=== PATIENT | female | born 1975 | race Caucasian/White ===

== ENCOUNTER 2023-01-28 14:44 | Outpatient (CLI) | payer MEDICAID ==
[2023-01-28 17:50] LABS: BASOPHILS # (AUTO) 0.1 10^3/uL (0.0-0.1); BASOPHILS % (AUTO) 0.7 %; EOSINOPHILS # (AUTO) 0.1 10^3/uL (0.0-0.7); HCT - HEMATOCRIT 45.7 % (37.0-47.0); HGB - HEMOGLOBIN 14.4 g/dL (12.0-16.0); LYMPHOCYTES % (AUTO) 24.2 %; MEAN CORPUSCULAR HEMOGLOBIN 27.2 pg (27.0-31.0); MEAN CORPUSCULAR HGB CONC 31.5 g/dL (32.0-36.0); MEAN CORPUSCULAR VOLUME 86.2 fL (81.0-99.0); MEAN PLATELET VOLUME 10.7 fL (7.9-10.8); MONOCYTES # (AUTO) 0.4 10^3/uL (0.0-1.0); MONOCYTES % (AUTO) 5.3 %; NEUTROPHILS # (AUTO) 5.7 10^3/uL (1.5-6.6); NEUTROPHILS % (AUTO) 68.4 %; PLT - PLATELET COUNT 302 10^3/uL (130-450); RED CELL DISTRIBUTION WIDTH 13.8 % (12.0-15.0); WHITE BLOOD COUNT 8.3 x10^3/uL (4.8-10.8)
[2023-01-28 18:16] LABS: THYROID STIMULATING HORMONE 1.51 uIU/mL (0.34-5.60)
[2023-01-28 18:18] LABS: FREE T4 (FREE THYROXINE) 0.91 ng/dL (0.58-1.64)
[2023-01-28 18:19] LABS: FERRITIN 11.4 ng/mL (11.0-306.8)
== END 2023-01-28 14:45 | disposition home or self-care (01) ==
LOC: LAB.N 14:44
PROVIDERS: ATTEND Nurse Practitioner
DX: L65.9 Nonscarring hair loss, unspecified (principal)
CPT/HCPCS: 36415; 82728; 84439; 84443; 85025

== ENCOUNTER 2023-02-11 15:42 | Outpatient (CLI) | payer MEDICAID ==
--- NOTE | 2023-02-12 11:09 | Mammography Report ---
BILATERAL DIGITAL SCREENING MAMMOGRAM 3D/2D: 02/11/2023 CLINICAL: Family history of breast cancer. Baseline exam. Routine screening. No prior exams were available for comparison. Both breasts are heterogeneously dense, which may obscure small masses (category c / 51-75% glandular tissue). There is a new 1.5 cm irregular mass with a microlobulated margin in the left breast central to the n ipple posterior depth 10 cm from the nipple. No other significant masses, calcifications, or other findings are seen in either breast. IMPRESSION: INCOMPLETE: NEEDS ADDITIONAL IMAGING EVALUATION The new 1.5 cm irregular mass in the left breast has a differential diagnosis of carcinoma and is ind eterminate. Additional views with possible ultrasound are recommended. Based on Tyrer-Cuzick model (a risk assessment model), the patient's lifetime risk is 25.6% and her 1 0 year risk is 6.0%. If a patient has an elevated risk, a more comprehensive evaluation should be con sidered and/or a referral to a genetic counselor. The [place] [employer], [employer], and NCCN Guidelines advise the consideration of Breast MRI as an adjunct to screening mammog alex in patients whose "Lifetime risk to develop breast cancer" is 20% or higher. This exam was interpreted at Station ID: [id number]. NOTE: For mammograms, a report in lay terms will be sent to the patient. Approximately 15% of breast malignancies will not be visualized mammographically. In the management of a palpable breast mass, a negative mammogram must not discourage biopsy of a clinically suspicious lesion. Electronically Signed By: Pedro Gotti M.D. acr/:02/12/2023 10:13:28 ACR BI-RADS Category 0: Incomplete 3340F PARENCHYMAL PATTERN: (D) - The breast(s) demonstrate(s) heterogeneously dense fibroglandular parenchy ma. BI-RADS CATEGORY: (0) - 0 Mammo and [place] [id number] Immediate follow-up LATERALITY: (L)
== END 2023-02-11 15:43 | disposition home or self-care (01) ==
LOC: DI.N 15:42
PROVIDERS: ATTEND Nurse Practitioner
DX: Z12.31 Encounter for screening mammogram for malignant neoplasm of breast (principal); N63.42 Unspecified lump in left breast, subareolar; Z80.3 Family history of malignant neoplasm of breast

== ENCOUNTER 2023-03-12 10:10 | Outpatient (CLI) | payer MEDICAID ==
--- NOTE | 2023-03-15 11:47 | Ultrasound Report ---
LIMITED ULTRASOUND OF LEFT BREAST AND AXILLA: 03/12/2023 CLINICAL: Patient returns for additional imaging over a suspected mass in the left breast. Comparison is made to exams dated: 03/12/2023 mammogram and 02/11/2023 mammogram - [facility]. Color flow ultrasound of the left breast 4 o'clock, and axilla regions was performed. Oliver scale abraham ges of the real-time examination were reviewed. There is a 1.6 cm x 1.6 cm x 1.1 cm irregular mass with a spiculated margin in the left breast at 4 o 'clock posterior depth 0.8 cm from the nipple. This irregular mass is hypoechoic. This correlates w ith mammography findings. Color flow imaging demonstrates that there is no vascularity present. No significant abnormalities were seen sonographically in the left axilla. IMPRESSION: HIGHLY SUGGESTIVE OF MALIGNANCY The 1.6 cm x 1.6 cm x 1.1 cm irregular mass in the left breast is highly suggestive of malignancy. -An ultrasound guided biopsy is recommended. No enlarged left axillary lymph nodes. Exam findings were discussed with the patient by Dr. Kimball. This exam was interpreted at Station ID: [id number]. Electronically Signed By: Vick Matos M.D. slc/:03/12/2023 12:16:16 Ultrasound BI-RADS: 5 Highly suggestive of malignancy BI-RADS CATEGORY: (5) - 5 Biopsy [id number] Immediate follow-up LATERALITY: (L)
--- NOTE | 2023-03-15 11:47 | Mammography Report ---
UNILATERAL LEFT DIGITAL DIAGNOSTIC MAMMOGRAM 3D/2D WITH SPOT COMPRESSION: 03/12/2023 CLINICAL: Patient returns for additional imaging over a suspected mass in the left breast. Comparison is made to exam dated: 02/11/2023 mammogram - [facility]. The left breast is heterogeneously dense, which may obscure small masses (category c / 51-75% glandul ar tissue). There is a new 1.8 cm irregular mass in the left breast central to the nipple posterior depth 10 cm f rom the nipple. This is seen in additional views. No other significant masses or calcifications are seen in the breast. IMPRESSION: INCOMPLETE: NEEDS ADDITIONAL IMAGING EVALUATION The new 1.8 cm irregular mass in the left breast is indeterminate. A targeted ultrasound is recommended and will immediately follow. Based on Tyrer-Cuzick model (a risk assessment model), the patient's lifetime risk is 27.5% and her 1 0 year risk is 6.5%. If a patient has an elevated risk, a more comprehensive evaluation should be con sidered and/or a referral to a genetic counselor. The [employer], [employer], and NCCN Guidelines advise the consideration of Breast MRI as an adjunct to screening mammog alex in patients whose "Lifetime risk to develop breast cancer" is 20% or higher. This exam was interpreted at Station ID: [id number]. NOTE: For mammograms, a report in lay terms will be sent to the patient. Approximately 15% of breast malignancies will not be visualized mammographically. In the management of a palpable breast mass, a negative mammogram must not discourage biopsy of a clinically suspicious lesion. Electronically Signed By: Vick Matos M.D. slc/:03/12/2023 10:47:02 ACR BI-RADS Category 0: Incomplete 3340F PARENCHYMAL PATTERN: (D) - The breast(s) demonstrate(s) heterogeneously dense fibroglandular pararianay noman. BI-RADS CATEGORY: (0) - 0 Ultrasound [id number] Immediate follow-up LATERALITY: (B)
== END 2023-03-12 10:11 | disposition home or self-care (01) ==
LOC: DI 10:10
PROVIDERS: ATTEND Nurse Practitioner
DX: N63.42 Unspecified lump in left breast, subareolar (principal)

== ENCOUNTER 2023-03-24 09:45 | Outpatient (CLI) | payer MEDICAID ==
[~2023-03-24 09:45] MED LIST: LIDOCAINE 1%-EPI 1:100000 20 ML MDV ONE; LIDOCAINE-MPF 1% 5 ML VIAL ONE
[2023-03-24] MEDS ORDERED: LIDOCAINE-MPF 1% 5 ML VIAL TD ONE (11:42)
[2023-03-24] MEDS ORDERED: LIDOCAINE 1%-EPI 1:100000 20 ML MDV SUBQ ONE (11:42)
--- NOTE | 2023-03-25 12:18 | Mammography Report ---
UNILATERAL LEFT DIGITAL DIAGNOSTIC MAMMOGRAM POST-PROCEDURE IMAGING FOR MARKER PLACEMENT: 03/24/2023 CLINICAL: Post left breast ultrasound biopsy clip placement imaging. No prior exams were available for comparison. The left breast is heterogeneously dense, which may obscure small masses (category c / 51-75% glandul ar tissue). There is a mass in the left breast middle depth seen on the mediolateral oblique view only. There also is a marker clip in the appropriate position in the left breast middle depth on seen on th e craniocaudal view only. This marker clip placement is at the biopsy site. No other significant masses or calcifications are seen in the breast. IMPRESSION: INCOMPLETE: NEEDS ADDITIONAL IMAGING EVALUATION There was a successful marker clip placement in the left breast middle depth seen on the craniocauda l view only. This exam was interpreted at Station ID: Unknown. NOTE: For mammograms, a report in lay terms will be sent to the patient. Approximately 15% of breast malignancies will not be visualized mammographically. In the management of a palpable breast mass, a negative mammogram must not discourage biopsy of a clinically suspicious lesion. Electronically Signed By: Tawana Cavazos M.D. [facility]/:03/24/2023 20:53:10 ACR BI-RADS Category 0: Incomplete 3340F PARENCHYMAL PATTERN: (D) - The breast(s) demonstrate(s) heterogeneously dense fibroglandular pararianay noman. BI-RADS CATEGORY: (0) - 0 Unspecified - other recall n/a LATERALITY: (B)
--- NOTE | 2023-03-26 16:23 | Ultrasound Report ---
ULTRASOUND GUIDED BIOPSY LEFT BREAST USING VACUUM DEVICE WITH MARKING DEVICE INSERTED AND POST MAMMOG RAPHIC IMAGIN03/24/2023 CLINICAL: Left breast mass. PATIENT CONSENT: Risks (minor bleeding, infection, vasovagal reaction and repeat procedure), benefits and alternatives were explained to the patient and written informed consent was obtained. Correlation is made to exams dated: 03/12/2023 ultrasound, 03/12/2023 mammogram, and 02/11/2023 mammogram - [facility]. An ultrasound guided biopsy using real-time ultrasound was performed for the indistinct irregular sha ped solid mass located in the left breast at 4 o'clock middle depth. This was described on the previ ous mammography and ultrasound reports. The skin was prepped in the usual manner. Local anesthetic was administered to the access site. A skin jose was made in the breast. The abnormality was approa ched from the lateral aspect. A biopsy needle was placed adjacent to the abnormality under ultrasoun d guidance. Once the needle was documented to be in the correct location, a specimen was obtained us ing the Mammotome biopsy system. A titanium clip was inserted into the biopsy cavity. A sterile enoc ssing was applied to the access site. Post procedure mammographic imaging was obtained. The specime n was sent to the laboratory for pathological analysis. IMPRESSION: ULTRASOUND GUIDED BIOPSY MALIGNANT Ultrasound guided biopsy of the solid mass in the left breast at 4 o'clock middle depth was successfu l. Pathology indicates malignant adenocarcinoma (ADCA). Pathology results are concordant with imagi ng findings. This exam was interpreted at Station ID: [id number]. Tawana Gotti M.D. [facility],acr/:03/26/2023 13:01:27 BI-RADS CATEGORY: () - Unspecified - other recall n/a LATERALITY: (B)
== END 2023-03-24 09:46 | disposition home or self-care (01) ==
LOC: DI 09:45
PROVIDERS: ATTEND Nurse Practitioner
DX: C50.512 Malignant neoplasm of lower-outer quadrant of left female breast (principal); Z17.0 Estrogen receptor positive status [ER+]
CPT/HCPCS: 19083

== ENCOUNTER 2023-06-07 07:55 | Day surgery (SDC) | payer MEDICAID ==
[~2023-06-07 07:55] MED LIST changes: +BUPIVACAINE 0.25% PF 30 ML VIAL ONE; -LIDOCAINE-MPF 1% 5 ML VIAL ONE
[2023-06-07] MEDS ORDERED: ACETAMINOPHEN 500 MG TABLET PO ONE (08:07)
[2023-06-07] MEDS ORDERED: ceFAZolin 2 GM VIAL ONE (08:07)
[2023-06-07] MEDS ORDERED: LACTATED RINGERS 1,000 ML IV ONE ×2 (08:17→12:47)
[2023-06-07] MEDS ORDERED: SCOPOLAMINE PATCH TOP ONE (08:23)
[2023-06-07] MEDS ORDERED: LIDOCAINE-MPF 1% 5 ML VIAL ONE (08:33)
[2023-06-07 09:23] LABS: HCG UR QUAL NEGATIVE
--- NOTE | 2023-06-07 10:05 | ANESTHESIA ---
Pre-Anesthesia VS, & Labs - Diagnosis L invasive ductal carcinoma - Procedure L wire localized lumpectomy Vital Signs: Temp Pulse Resp BP Pulse Ox O2 Flow Rate 36.4 C L 70 16 140/95 H 98 06/07/23 08:19 06/07/23 08:19 06/07/23 08:19 06/07/23 08:19 06/07/23 08:19 Height: 5 ft 6 in Weight (kg): 104 kg Body Mass Index: 37.0 BMI Classification: Obese - NPO >8 hours - Is Patient ?: No - Lab Results Lab results reviewed: Yes Home Medications and Allergies Biotin 2,500 mcg PO UD 06/04/23 Rauwolfia Serpentina 1 gm MC UD 06/04/23 Allergies/Adverse Reactions: Allergies Allergy/AdvReac Type Severity Reaction Status Date / Time gluten Allergy Unknown Verified 06/07/23 06:49 lactose Allergy Unknown Verified 06/07/23 06:49 latex Allergy Unknown Verified 06/07/23 06:49 Anes History & Medical History - Anesthetic History Anesthesia Complications: reports: No previous complications Family history of Anesthesia Complications: Denies Family history of Malignant Hyperthermia: Denies - Medical History Cardiovascular: reports: None Pulmonary: reports: None Gastrointestinal: reports: None Urinary: reports: None Musculoskeletal: reports: Fatigue Endocrine/Autoimmune: reports: None Skin: reports: None Psychosocial: reports: Alcohol (social) History of Cancer?: No - Surgical History Gynecologic: reports: Dilation and currettage Exam General: Alert, Oriented x3, Cooperative Dental: WNL Mouth Openin Fingerbreadth Neck Mobility: Normal Mallampati classification: II Thyromental Distance: 4-6 cm Respiratory: Lungs clear, Normal breath sounds, No respiratory distress Cardiovascular: Regular rate Neurological: Normal speech Mental/Cognitive Status: Alert/Oriented X3, Normal for patient Cognitive Status: Within normal limits Plan Anesthesia Type: General Consent for Procedure(s) Verified and Reviewed: Yes Code Status: Attempt Resuscitation ASA classification: 3-Severe systemic disease Is this case an emergency?: No
[2023-06-07] MEDS ORDERED: fentaNYL 100 MCG/2 ML VIAL ONE (10:09)
[2023-06-07] MEDS ORDERED: PROPOFOL 500 MG/50 ML 500 MG/50 ML VIAL ONE (10:10)
[2023-06-07] MEDS ORDERED: MIDAZOLAM 2 MG/2 ML VIAL ONE (10:10)
[2023-06-07] MEDS ORDERED: HYDROmorphone 0.5 MG/0.5 ML SYRINGE IVP PRN ×2 (10:13→12:53)
[2023-06-07] MEDS ORDERED: ONDANSETRON 4 MG/2 ML VIAL IVP PRN ×2 (10:13→12:53)
[2023-06-07] MEDS ORDERED: NALOXONE 0.4 MG/ML VIAL IVP PRN (10:13)
[2023-06-07] MEDS ORDERED: MORPHINE 2 MG/ML CARPUJECT IVP PRN (10:13)
[2023-06-07] MEDS ORDERED: METOCLOPRAMIDE 10 MG/2 ML VIAL IVP PRN (10:13)
[2023-06-07] MEDS ORDERED: ePHEDrine 50 MG/ML VIAL IVP PRN (10:13)
[2023-06-07] MEDS ORDERED: fentaNYL 100 MCG/2 ML VIAL IVP PRN (10:13)
[2023-06-07] MEDS ORDERED: ATROPINE ABBOJECT 1 MG/10 ML SYRINGE IVP PRN (10:13)
[2023-06-07] MEDS ORDERED: LIDOCAINE 1%-EPI 1:100000 20 ML MDV SUBQ ONE (10:30)
[2023-06-07] MEDS ORDERED: BUPIVACAINE 0.25% PF 30 ML VIAL SUBQ ONE (10:30)
[2023-06-07] MEDS ORDERED: LACTATED RINGERS 1,000 ML IV SCH (11:00)
--- NOTE | 2023-06-07 11:45 | Ultrasound Report ---
ULTRASOUND GUIDED WIRE LOCALIZATION LEFT BREAST: 06/07/2023 CLINICAL: Left Breast Wire Localization. Correlation is made to exams dated: 04/01/2023 breast MRI - [facility], 03/24/2023 ultrasound biops y, 03/24/2023 mammogram, 03/12/2023 ultrasound, 03/12/2023 mammogram, and 02/11/2023 mammogram - [facility]. A wire localization using ultrasound guidance was performed for the 1.6 cm x 1.6 cm x 1.1 cm mass loc ated in the left breast at 4 o'clock posterior depth 0.8 cm from the nipple. The skin was prepped in the usual manner. A wire was inserted into the targeted area under ultrasound guidance. IMPRESSION: WIRE LOCALIZATION Wire localization for the 1.6 cm x 1.6 cm x 1.1 cm mass in the left breast at 4 o'clock posterior dep th 0.8 cm from the nipple was successful. This exam was interpreted at Station ID: [id number]. Riley Pack M.D. crm/:06/07/2023 10:11:47 BI-RADS CATEGORY: () - Unspecified - other recall n/a LATERALITY: (B)
--- NOTE | 2023-06-07 11:45 | Mammography Report ---
UNILATERAL LEFT DIGITAL DIAGNOSTIC MAMMOGRAM WITH MEDIOLATERAL OBLIQUE: 06/07/2023 CLINICAL: Pre op wire localization with ultrasound. Comparison is made to exams dated: 03/24/2023 mammogram, 03/12/2023 mammogram, and 02/11/2023 mammogram - [facility]. The left breast is heterogeneously dense, which may obscure small masses (category c / 51-75% glandul ar tissue). There is a wire in the left breast at 4 o'clock with the tip of the wire approximately 1 cm inferior and lateral from the biopsy marker clip. IMPRESSION: POST PROCEDURE MAMMOGRAM FOR MARKER PLACEMENT There was a successful wire placement in the left breast with the tip of the wire approximately 1 cm inferior and lateral to the biopsy marker clip. This exam was interpreted at Station ID: [id number]. NOTE: For mammograms, a report in lay terms will be sent to the patient. Approximately 15% of breast malignancies will not be visualized mammographically. In the management of a palpable breast mass, a negative mammogram must not discourage biopsy of a clinically suspicious lesion. Electronically Signed By: Riley Pack M.D. crm/:06/07/2023 10:19:31 ACR BI-RADS Category Post-procedure mammogram for marker placement PARENCHYMAL PATTERN: (D) - The breast(s) demonstrate(s) heterogeneously dense fibroglandular shantanu tineo. BI-RADS CATEGORY: () - Unspecified - other recall n/a LATERALITY: (B)
[2023-06-07] MEDS ORDERED: IBUPROFEN 400 MG TABLET PO PRN (12:53)
[2023-06-07] MEDS ORDERED: ACETAMINOPHEN 500 MG TABLET PO PRN (12:53)
[2023-06-07] MEDS ORDERED: oxyCODONE 5 MG TABLET PO PRN (12:53)
--- NOTE | 2023-06-07 12:58 | OPERATIVE REPORT ---
Operative Report - General Procedure Date: 06/07/23 Planned Procedure: Wire localized lumpectomy (left breast) and sentinel lymph node biopsy (left axilla) Pre-Op Diagnosis: Invasive ductal carcinoma Procedure Performed: Wire localized lumpectomy (left breast) and sentinel lymph node biopsy (left axilla) Post Op Diagnosis: Invasive ductal carcinoma - Procedure Note Primary Surgeon: Jay Anesthesia Provider: Aaron Gant CRNA Anesthesia Technique: General LMA, Local Pathology: 1. Left lumpectomy 2. Reexcision inferior margin 3. Reexcision posterior margin 4. [place] lymph node #1, 1411 5. [place] lymph node #2, 642 Estimated Blood Loss (mL): 60 Indications: Patient had abnormal findings on her first screening mammogram which prompted her to receive a biopsy which demonstrated invasive ductal carcinoma of the left breast. Following this, the patient was seen and evaluated in the clinic. We discussed the risks, benefits, and alternatives of lumpectomy versus mastectomy. The patient also underwent genetic testing which revealed no genetic abnormalities that would increase her risk for additional breast cancer over that of the general population. Risks of lumpectomy include bleeding, infection, damage to surrounding structures, numbness, positive margins were requiring reexcision, and the need for further surgeries or procedures. We also discussed additional risks with sentinel lymph node biopsy including fluid col lection in the axilla and/or numbness or swelling in the left arm. The patient voiced understanding, her questions were answered, and she wished to proceed. A consent was signed by the patient prior to surgery. Findings: 1. Left lumpectomy 2. Reexcision inferior margin 3. Reexcision posterior margin 4. [place] lymph node #1, 1411 5. [place] lymph node #2, 642 Complications: None - Other Other Information/Narrative: The patient was taken to the operating room and placed in the supine position. Preop antibiotics were given. ERAS medications were given. The patient was prepped and draped in the usual sterile fashion. A preop surgical timeout was performed. Attention was turned to the patient's left breast. An incision was made which incorporated the wire, following the patient's skin folds, at the 9 o'clock position, N + 6. The wire was at the lateral margin of the incision. Skin flaps were raised superiorly and inferiorly to the incision. The dissection was carried down to the thick part of the wire using electrocautery. At this point, serrated scissors were used to perform a lumpectomy staying approximately 1 cm away from the wire in all dimensions, but traveling mostly medial, superior, and posterior to the wire given its position on mammography. The lumpectomy specimen was removed and oriented with suture on the back table. On inspection of the specimen, the inferior and posterior margins felt close by palpation. The specimen was sent to mammography and the biopsy clip was confirmed to be within the specimen.The edges of the lumpectomy cavity were inspected and there were no palpable abnormalities. The inferior and posterior margins were reexcised and oriented with suture. Hemostasis was confirmed. The lumpectomy cavity was irrigated with warm normal saline. Clips were placed in the superior, inferior, medial, lateral, anterior, and posterior margins of the lumpectomy cavity. Attention was then turned to the left axilla. An incision was made just inferior to the hairline at the area of greatest uptake using the neoprobe device. The incision was made using a 15 blade scalpel and carried down through the skin and subcutaneous tissues to the level of the axillary fascia. The fascia was incised. The sentinel lymph nodes were identified using the neoprobe. Clips were used proximally and distally to the nodes and the nodes were removed the first node had a maximal reading of 1411 on the back table and was noted to be markedly enlarged. The second sentinel lymph node measured 642 on the back table. On further inspection, there were no additional lymph nodes that had at least 10% uptake, 141, and no additional abnormal palpable nodes. Hemostasis was confirmed in the axilla. The deep dermal tissues of both incisions were closed with 3-0 Vicryl. The skin of both incisions was reapproximated with 4-0 Monocryl in a subcuticular fashion. Skin glue was placed over both incisions. The patient tolerated the procedure well. There were no complications. Synoptic Breast SNB - [place] Node Biopsy Operation performed with curative intent: Yes Tracer(s) used to identify sentinel nodes in the upfront surgery (non- neoadjuvant) setting (select all that apply): Radioactive tracer Tracer(s) used to identify sentinel nodes in the neoadjuvant setting (select all that apply): N/A All nodes (colored or non-colored) present at the end of a dye-filled lymphatic channel were removed: N/A All significantly radioactive nodes were removed: Yes All palpably suspicious nodes were removed: N/A (None present) Biopsy-proven positive nodes marked with clips prior to chemotherapy were identified and removed: N/A
[2023-06-07] MEDS ORDERED: LIDOCAINE-MPF 1% 5 ML VIAL TD ONE (13:08)
[2023-06-07 13:44] VITALS: BP 131/83; O2SAT 94
--- NOTE | 2023-06-07 15:29 | ANESTHESIA POST OP EVALUATION ---
Anesthesia Post Eval - Post Anesthesia Eval Vitals: Last Vital Signs Temp 36.0 C L 06/07/23 13:15 Pulse 71 06/07/23 13:43 Resp 14 06/07/23 13:43 BP 131/83 H 06/07/23 13:43 Pulse Ox 94 06/07/23 13:43 O2 Flow Rate CV Function Including HR & BP: Stable Pain Control: Satisfactory Nausea & Vomiting: Negative Mental Status: Baseline Respiratory Status: Airway Patent Hydration Status: Satisfactory Anesthesia Complications: None
--- NOTE | 2023-06-08 12:00 | Mammography Report ---
SPECIMEN: 06/07/2023 CLINICAL: Left breast specimen. Correlation is made to exams dated: 06/07/2023 mammogram, 06/07/2023 localization, 03/24/2023 ultrasoun d biopsy, and 03/24/2023 mammogram - [facility]. Left breast lumpectomy specimen contains the biopsy clip and localization wire. IMPRESSION: SPECIMEN Left breast lumpectomy specimen contains the biopsy clip. This exam was interpreted at Station ID: [id number]. Vick Matos M.D. slc/:06/07/2023 13:01:56 BI-RADS CATEGORY: () - Unspecified - other recall n/a LATERALITY: (B)
== END 2023-06-07 07:56 | disposition home or self-care (01) ==
LOC: DI 07:55
PROVIDERS: ATTEND Surgery
PROC: 07B60ZX Excision of Left Axillary Lymphatic, Open Approach, Diagnostic (ICD-10-PCS; 2023-06-07)
PROC: 0HBU0ZZ Excision of Left Breast, Open Approach (ICD-10-PCS; principal; 2023-06-07 10:45)
DX: C50.912 Malignant neoplasm of unspecified site of left female breast (principal); Z17.0 Estrogen receptor positive status [ER+]; E66.9 Obesity, unspecified; Z68.37 Body mass index [BMI] 37.0-37.9, adult; Z32.02 Encounter for pregnancy test, result negative
CPT/HCPCS: 19285; 81025

== ENCOUNTER 2023-06-14 02:58 | Observation (INO) | payer MEDICAID ==
--- OUTSIDE RECORDS SUMMARY | 2023-06-14 03:06 | EXTERNAL MEDICAL SUMMARY RPT | Continuity of Care Document ---
Author Name Unknown Address [address] [place] [address] Phone Organization [facility] Address [address] [phone] Phone Problems date description facility 2023-04-01 11:58 Other abnormal and i nconclusive findings on diagnostic Merged with [facility] 2023-05-20 14:20 Other abnormal and i nconclusive findings on diagnostic Merged with [facility] 2023-06-04 07:55 Other abnormal and i nconclusive findings on [facility] Results/Labs test date facility value unit notes
[2023-06-14 03:35] LABS: BASOPHILS # (AUTO) 0.1 10^3/uL (0.0-0.1); BASOPHILS % (AUTO) 0.6 %; EOSINOPHILS # (AUTO) 0.1 10^3/uL (0.0-0.7); EOSINOPHILS % (AUTO) 0.7 %; HCT - HEMATOCRIT 44.5 % (37.0-47.0); HGB - HEMOGLOBIN 13.9 g/dL (12.0-16.0); LYMPHOCYTES # (AUTO) 2.2 10^3/uL (1.5-3.5); LYMPHOCYTES % (AUTO) 13.8 %; MEAN CORPUSCULAR HEMOGLOBIN 27.1 pg (27.0-31.0); MEAN CORPUSCULAR HGB CONC 31.2 g/dL (32.0-36.0); MEAN CORPUSCULAR VOLUME 86.7 fL (81.0-99.0); MONOCYTES % (AUTO) 6.2 %; NEUTROPHILS # (AUTO) 12.7 10^3/uL (1.5-6.6); NEUTROPHILS % (AUTO) 78.2 %; PLT - PLATELET COUNT 261 10^3/uL (130-450); RED BLOOD COUNT 5.13 10^6/uL (4.20-5.40); RED CELL DISTRIBUTION WIDTH 13.3 % (12.0-15.0); WHITE BLOOD COUNT 16.2 x10^3/uL (4.8-10.8)
[2023-06-14 03:55] LABS: ALBUMIN 4.3 g/dL (3.2-5.5); ALBUMIN/GLOBULIN RATIO 1.4 (1.0-2.2); BILIRUBIN,TOTAL 0.6 mg/dL (0.2-1.0); CALCIUM 9.3 mg/dL (8.5-10.3); TOTAL PROTEIN 7.3 g/dL (6.4-8.9)
[2023-06-14] MEDS ORDERED: SODIUM CHLORIDE 0.9% 1,000 ML IV STA (04:09)
[2023-06-14] MEDS ORDERED: ONDANSETRON 4 MG/2 ML VIAL IVP STA (05:35)
[2023-06-14] MEDS ORDERED: MORPHINE 2 MG/ML CARPUJECT IVP STA (05:35)
[2023-06-14] MEDS ORDERED: cefTRIAXone 1 GM in SODIUM CHLORIDE 0.9% MINIBAG 100 ML IV STA (05:45)
[2023-06-14] MEDS ORDERED: iohexoL-300 100 ML VIAL IVP ONE (05:50)
[2023-06-14] MEDS ORDERED: cefTRIAXone 1 GM VIAL ONE (06:12)
--- NOTE | 2023-06-14 06:24 | ED Physician Documentation ---
History of Present Illness - Stated complaint Stated Complaint: L BREAST PX/FEVER - Chief complaint Chief Complaint: General - Additonal information Additional information: Patient is 47-year-old female with past medical significant for invasive ductal carcinoma approximately 8 days after local excisional biopsy presenting with chest pain, shortness of breath, fever. Patient reports woke up Wednesday night with acute onset discomfort. Progressively worsening until she has fever at home today. Denies any leg swelling. Denies any nausea or vomiting. States is not taking any medications for pain. Review of Systems Constitutional: denies: Fever Eyes: denies: Loss of vision Ears: denies: Loss of hearing Throat: denies: Dental pain / toothache Cardiac: reports: Chest pain / pressure Respiratory: reports: Dyspnea GI: denies: Abdominal Pain : denies: Dysuria PD PAST MEDICAL HISTORY - Past Medical History Cardiovascular: None Respiratory: None Endocrine/Autoimmune: None GI: None : None HEENT: None Psych: Depression, Anxiety, Claustrophobia Musculoskeletal: Fatigue Derm: None Other Past Medical History: breast cancer - Past Surgical History Past Surgical History: Yes /CHAMPION OF SUSTAINABLE DESIGN: Dilation and currettage - Present Medications Home Medications: Ambulatory Orders Medication Instructions Recorded Confirmed No Known Home Medications 06/14/23 06/14/23 - Allergies Allergies/Adverse Reactions: Allergies Allergy/AdvReac Type Severity Reaction Status Date / Time gluten Allergy Unknown Verified 06/14/23 03:05 lactose Allergy Unknown Verified 06/14/23 03:05 latex Allergy Unknown Verified 06/14/23 03:05 - Social History Does the pt smoke?: No Smoking Status: Former smoker PD ED PE NORMAL - Vitals Vital signs reviewed: Yes - General General: Alert and oriented X 3, Other (Patient ill-appearing) - HEENT HEENT: Atraumatic - Neck Neck: Supple, no meningeal sign - Cardiac Cardiac: RRR - Respiratory Respiratory: No respiratory distress, Clear bilaterally - Abdomen Abdomen: Normal bowel sounds, Non tender - Female Female : Deferred - Rectal Rectal: Deferred - Back Back: No CVA TTP - Derm Derm: Normal color - Extremities Extremities: No deformity - Neuro Neuro: Alert and oriented X 3, cable placer 2-12 intact, No motor deficit, No sensory deficit, Normal speech Results - Vitals Vitals: Vital Signs - 24 hr 06/14/23 06/14/23 06/14/23 05:09 05:30 06:14 Temperature 37.2 C Heart Rate 65 70 Respiratory 16 20 17 Rate Blood Pressure 145/80 H 141/80 H O2 Saturation 97 98 94 06/14/23 06/14/23 07:01 09:00 Temperature Heart Rate 62 64 Respiratory 20 14 Rate Blood Pressure 140/79 H 131/76 H O2 Saturation 94 95 Oxygen O2 Source Room air - EKG (time done) 0331 EKG releavant findings:: EKG personally interpreted by author of this note. Relevant findings are: Sinus rhythm with rate 80 bpm. Normal axis. Normal OH, QRS, QTc intervals. No ST segment elevations. Nonspecific T wave abnormality V2. - Labs Labs: Microbiology 06/14/23 08:50 Wound Culture - Preliminary Breast - Left Laboratory Tests 06/14/23 06/14/23 06/14/23 03:29 03:29 03:29 WBC 16.2 H RBC 5.13 Hgb 13.9 Hct 44.5 MCV 86.7 MCH 27.1 MCHC 31.2 L RDW 13.3 Plt Count 261 MPV 10.0 Neut # (Auto) 12.7 H Lymph # (Auto) 2.2 Estill # (Auto) 1.0 Eos # (Auto) 0.1 Baso # (Auto) 0.1 Absolute Nucleated RBC 0.00 Nucleated RBC % 0.0 D-Dimer Sodium 135 Potassium 4.0 Chloride 101 Carbon Dioxide 27 Anion Gap 7.0 BUN 14 Creatinine 1.0 Estimated GFR (MDRD) 59 L Glucose 127 H Lactic Acid 1.1 Calcium 9.3 Total Bilirubin 0.6 AST 11 ALT 13 Alkaline Phosphatase 92 Troponin I High Sens B-Natriuretic Peptide Total Protein 7.3 Albumin 4.3 Globulin 3.0 Albumin/Globulin Ratio 1.4 Lipase 36 06/14/23 06/14/23 06/14/23 03:29 03:29 03:29 WBC RBC Hgb Hct MCV MCH MCHC RDW Plt Count MPV Neut # (Auto) Lymph # (Auto) Estill # (Auto) Eos # (Auto) Baso # (Auto) Absolute Nucleated RBC Nucleated RBC % D-Dimer 998.1 H Sodium Potassium Chloride Carbon Dioxide Anion Gap BUN Creatinine Estimated GFR (MDRD) Glucose Lactic Acid Calcium Total Bilirubin AST ALT Alkaline Phosphatase Troponin I High Sens 2.9 B-Natriuretic Peptide 32 Total Protein Albumin Globulin Albumin/Globulin Ratio Lipase PD Medical Decision Making - ED course Complexity details: reviewed results, re-evaluated patient, d/w patient, d/w residential sales consultant ED course: Patient 47-year-old female presenting to the emergency department with chest pain, shortness of breath. Afebrile, hemodynamically stable. Subsequently identified as having bilateral pulmonary emboli. This is in the setting of ductal carcinoma. Her simplified EPSE score is elevated and she has risk for bad outcomes. She was given a dose of enoxaparin. Initially consulted with the telehospitalist service at approximately 0628 hrs. however was informed that they will not here consultations and that she will need to be signed out to the oncoming physician for evaluation by the oncoming hospitalist. Departure - Departure Disposition: ED Place in Observation Clinical Impression: Pulmonary embolism and infarction, H/O breast biopsy, Fever Condition: Stable Discharge Date/Time: 06/14/23 10:16
--- NOTE | 2023-06-14 08:37 | ED Physician Documentation ---
ED Addendum - Addendum Addendum: 06/14/23 08:36 The patient was attempted to be admitted prior to change of shift but the nighttime hospitalist was too late in their shift. Deferred to daytime. I talked with the hospitalist this morning regarding the patient's findings and status and agreement is to place her in the hospital. Disposition: Patient is placed in observation in the hospital in stable condition. Diagnoses: 1. Recent breast biopsy 2. Fever 3. Pulmonary emboli 4. Chest pain
[2023-06-14] MEDS ORDERED: ENOXAPARIN 100 MG/ML SYRINGE SUBQ STA (08:51)
[2023-06-14] MEDS ORDERED: ENOXAPARIN 100 MG/ML SYRINGE SUBQ SCH (09:00)
[2023-06-14] MEDS ORDERED: ACETAMINOPHEN 325 MG TABLET PO PRN (09:18)
[2023-06-14] MEDS ORDERED: SODIUM CHLORIDE FLUSH 0.9% 10 ML SYRINGE IVP PRN (09:18)
[2023-06-14] MEDS ORDERED: ONDANSETRON 4 MG/2 ML VIAL IVP PRN (09:18)
--- NOTE | 2023-06-14 10:04 | CT Report ---
PROCEDURE: ANGIO CHEST W/WO INDICATIONS: rule out PE CONTRAST: 100 ML OMNI 300 TECHNIQUE: After the administration of intravenous contrast, 2 mm axial images were acquired from the pulmonary apices to the posterior costophrenic angles during the arterial phase. In addition, 1 mm lung kernel and 5 mm soft tissue kernel reconstructions were performed. 3-dimensional coronal oblique maximum int ensity projection (MIP) reformats, 8 mm axial MIP, and 5 mm coronal and sagittal MPR reformats were t hen performed through the thorax. For radiation dose reduction, the following was used: automated exp osure control, adjustment of mA and/or kV according to patient size. COMPARISON: None. FINDINGS: Image quality: Suboptimal with respiratory motion artifacts. Large vessels: There are luminal filling defects within lower lobe lobar arteries, consistent with pu lmonary emboli. No evidence of acute aortic syndrome or aortic aneurysm. Lungs and pleura: Right lower lobe infiltrates. Small right pleural effusion. No pneumothorax. No park spicious pulmonary nodules which require follow up. Mediastinum: Heart size is normal. No pericardial effusion. No large vessel abnormality. No mediastin al adenopathy by size criteria. Moderate size hiatal hernia. Chest wall and lower neck: Thyroid is unremarkable. No axillary or supraclavicular adenopathy by size . Bones: No aggressive osseous abnormality. Upper Abdomen: Unremarkable. IMPRESSION: 1. Bilateral lower lobe pulmonary emboli. 2. Right lower lobe infiltrate and small left effusion suspicious for pulmonary infarct. 3. No findings to suggest right heart strain. Findings are concordant with preliminary interpretation provided by [facility]. Reviewed by: Ronit Patel MD on 06/14/2023 10:02 AM PDT Approved by: Ronit Patel MD on 06/14/2023 10:02 AM PDT Station ID: [id number]
[2023-06-14] MEDS ORDERED: HYDROmorphone 1 MG/ML CARPUJECT IVP PRN (10:14)
--- NOTE | 2023-06-14 10:46 | HISTORY & PHYSICAL EXAMINATION ---
Chief Complaint - Chief Complaint Chief Complaint: CP, SOA, fever, drainage at breast surgery site History of Present Illness - Admitted From Admitted From:: ED - History Obtained From History obtained from: ED provider and the pt - History of Present Illness HPI Comment/Other: Patient is 47-year-old female with a neg past medical Hx, until recently a L breast mass was found on yearly exam, and after her mammo confirmed a mass, she had excisional biopsy several weeks ago and has Dx of invasive ductal carcinoma of the breast. She was [place] [facility] [place], who plans 4 courses of chemo in the future, but she first underwent surgical tumor excision a week ago. She has been managing pain at the 2 suture sites (below L breast and in L axilla) with ice paks QID. Today she presented to the ER describing that she awoke in the middle of the night with pleuritic R postero-lateral chest pain, shortness of breath, had a fever and her mother n oticed drainage from the sutures site below her breast. She got a muscle relaxant which had no effect. Her ER W/U shows WBC 16.2, no fever here and stable VS with O2 sat 94-97 on r.a. D-dimer 965, so she had a CTA chest that shows multiple PE's bilaterally and a R postero-basal pulmonary infarction. In the ER she got Lovenox 100 mg sq x1, and Morphine for pain which gave her nausea. The L breast area was described as reddened and very tender. Her EKG, troponin and BNP were described as being unremarkable. The ED provider spoke to me about this pt. She will be brought in under Observation to manage her pleuritic pain, breast pain, to treat the PE with anticoagulants and treat possible breast cellulitis. History - Past Medical History Cardiovascular: reports: None Respiratory: reports: None Endocrine/Autoimmune: reports: None GI: reports: None : reports: None HEENT: reports: None Psych: reports: Depression, Anxiety, Claustrophobia Musculoskeletal: reports: Fatigue Derm: reports: None MRSA Hx?: No Other Past Medical History: Breast cancer recently Dx - Past Surgical History /QUAD STAYER: reports: Dilation and currettage, Other (Breast mass excised) - Family & Social History Family History: Mother: Alive and Well Family History Comment/Other: (+) FH of blood clots: father with PE, brother with DVT and PE Living arrangement: At home Living Situation: With family Social History Notes: She lives with her mother and her brother. 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 She quit smoking cigarettes 20 years ago. No drug use history. She rarely drinks alcohol. - Substance History Use: Uses substance without health or social issues: NONE Meds/Allgy - Home Medications Home Medications: Ambulatory Orders Medication Instructions Recorded Confirmed No Known Home Medications 06/14/23 06/14/23 - Allergies Allergies/Adverse Reactions: Allergies Allergy/AdvReac Type Severity Reaction Status Date / Time gluten Allergy Unknown Verified 06/14/23 03:05 lactose Allergy Unknown Verified 06/14/23 03:05 latex Allergy Unknown Verified 06/14/23 03:05 Review of Systems - Constitutional Constitutional: reports: Fever, Poor appetite - Respiratory Respiratory: reports: SOB at rest, Pleuritic pain - Integumentary Integumentary: reports: Other (Entire L breast is tender) - All Other Systems All Other Systems: reports: Reviewed and negative Exam - Vital Signs Vital Signs: Vital Signs x48h Temp Pulse Pulse Resp BP BP Pulse Ox 06/14/23 10:24 20 06/14/23 10:08 37.1 C 78 26 H 158/70 H 95 06/14/23 09:00 64 14 131/76 H 95 06/14/23 07:01 62 20 140/79 H 94 06/14/23 06:14 37.2 C 70 17 141/80 H 94 06/14/23 05:30 20 98 06/14/23 05:09 65 16 145/80 H 97 06/14/23 03:05 37.4 C 90 16 150/87 H 98 - Physical Exam General Appearance: positive: Moderate distress (from pain. She is splinting.) Eyes Bilateral: positive: Normal inspection, EOMI ENT: positive: No signs of dehydration Neck: positive: Nml inspection, No JVD Respiratory: positive: Rales (R base), Other (She is splinting, taking shallow breaths. Clear lung bird except for the right lateral side) Cardiovascular: positive: Regular rate & rhythm (Heart sounds are very distant due to obesity and large breasts) Abdomen: positive: Non-tender, No distention Skin: positive: Warm, Dry Extremities: positive: Non-tender, No pedal edema Neurologic/Psychiatric: positive: Oriented x3, Motor nml Conclusion/Plan - Problem List (1) Pulmonary embolism and infarction Conclusion/Plan: The pleuritic pain in the right lateral chest area, below the rib cage, is not spinal pain or muscle spasm, it is pleuritic from her PE with infarction. In meeting this patient today and learned that there is a family history of clots. Her father had a PE. Her brother had a DVT and PE. Her adm EKG does not show evidence of R heart strain Plan: I will order a complete Echo to evaluate for RV overload The patient got therapeutic dose of Lovenox this morning (100 mg) subcu, therefo re will start Eliquis 10 mg p.o. twice daily this evening. The 10 mg twice daily dose will be for the first 7 days, then dose would go down to 5 mg twice daily. I will increase pain meds using Dilaudid for pain control. In addition, she probably needs scheduled ibuprofen alternating with Tylenol. I will order IS TID, to decrease atelectasis. The ER doctor already evals for Protein S, Protein C abnormalities, Factor V Leiden abn and Lupus anticoagulant Duration of anticoagulant treatment will be up to the PCP or Oncologist. (2) Breast cancer Conclusion/Plan: She had excision of the entire breast tumor she said, and has 2 areas that were sutured, 1 below the left breast in the fold and one in her axilla. Plan: We will order culture of the drainage from the suture site. We will order a set of blood cultures as well Follow WBC daily I will request a surgery consult to evaluate the status of both surgical sites and to give any further recommendations regarding management Will order ice paks and the pain meds as in #1 (3) Fever Conclusion/Plan: She reports having a fever at home when she awoke in the middle of the night. A PE can give you a fever but so can an infection. She does have a white count elevated at 16.2. Lactic acid is normal at 1.1 Plan: Breast drainage sent for culture Will obtain blood culture Follow her WBC daily Gen Surg consult to eval surgical site and for any further recommendations Will consider empiric IV antibiotics, if advised by Surgery - Lab Results Fish Bones: 06/14/23 03:29 06/14/23 03:29 - Diagnostic Imaging Results Diagnostic Imaging Results: positive: Final report reviewed
--- NOTE | 2023-06-14 11:58 | PHARMACY PROGRESS NOTE ---
- Best Possible Medication History Admit Date and Time: 06/14/23917 Processed by: Nursing As the person ultimately responsible for medication therapy, providers are able to order a medication from an existing home medication list in [facility] via the "Reconcile Routine" prior to Confirmation of that medication by computer support technician. Such practice is discouraged except when the physician, in their clinical judgment, deems that a medical need exists for a medication without regard to previous use.
[2023-06-14] MEDS ORDERED: PROCHLORPERAZINE 10 MG/2 ML VIAL IVP PRN (15:44)
--- NOTE | 2023-06-14 15:51 | CONSULTATION NOTE ---
Surgery Consult - Admit Date Hospital Admission Date: 06/14/23 - Consult Date Consult Date: 06/14/23 Requesting Provider: Dr. Villareal - Chief Complaint Chief Complaint: S/P left breast surgery - Home Meds/Allergies Home Medications: Patient History Medication Instructions Recorded Confirmed No Known Home Medications 06/14/23 06/14/23 Allergies/Adverse Reactions: Allergies Allergy/AdvReac Type Severity Reaction Status Date / Time gluten Allergy Unknown Verified 06/14/23 03:05 lactose Allergy Unknown Verified 06/14/23 03:05 latex Allergy Unknown Verified 06/14/23 03:05 - Vital Signs Vital Signs: Last Vital Signs Temp 98.4 F 06/14/23 13:00 Pulse 66 06/14/23 13:00 Resp 20 06/14/23 13:00 BP 140/80 H 06/14/23 13:00 Pulse Ox 95 06/14/23 13:00 O2 Flow Rate Intake & Output: Intake & Output 06/11/23 06/12/23 06/13/23 06/14/23 23:59 23:59 23:59 23:59 Intake Total 1300 Output Total 1 Balance 1299 - Lab Results Result Diagrams: 06/14/23 03:29 06/14/23 03:29 - Consultation Note Consultation Note: General Surgery Consultation Note Assessment: 1) No clinical or image evidence of a post op left breast or axillary infection 2) Post op bilateral pulmonary emboli Recommendation: 1) No need for IV antibiotics regarding the breast and axillary wounds 2) PE management per Medical Hospitalist Service 3) Consider workup for Factor V Leiden Mutation <><><><><><><><><><> Reason for Consultation I am asked to see this patient in consultation by Dr. Villareal to evaluate the left breast surgical site for possible infection. Chief Complaint Fever, right pleuritic pain NANY Alejandra has clinical Stage 1 (T1NxMx) left breast cancer identified on mammography, biopsied using a needle core technique, and managed surgically with wire guided lumpectomy and sentinel lymph node biopsy last week. The tumor was 1.8 cm in maximal diameter on pre-op ultrasound. Her immediate post-op course was unremarkable. Her left breast surgical discomfort was controlled with an ice pack. Early this morning she developed a fever and severe right pleuritic chest pain associated with SOB. She came to the ED and was found to have multiple bilateral pulmonary emboli and possible RLL segmental infarction. She was admitted to the Medical Hospitalist Service and I was asked to evaluate the left breast operative site for possible infection. Ny tells me that she has not had progressive worsening of her left breast discomfort. Ice has worked well to control the post-op discomfort. There has been no redness about wither the axillary or breast wound. Her mother thought she saw drainage associated with the breast wound. Past Medical History Denies [place], CVA, DM, Asthma, Liver or Kidney disease. Admits to depression and anxiety Past Surgical History Left breast lumpectomy/SLNB last week D&C Family History Multiple family members on anticoagulants for blood clots. Social History Non smoker Current Medications See "Medication" section Allergies See "Allergy" section ROS Pertinent positives Fever, SOB, right pleuritic pain All other reviewed systems negative Physical Examination Vital Signs: See "Vital Signs" section BMI: 37 GENERAL APPEARANCE: Normal development, normal body habitus, normal grooming PSYCHIATRIC: AAO; Comfortable but anxious and emotional LEFT BREAST/AXILLA: The left breast and axillary incisions appear to be healing normally. There is no cellulitis, skin or subcutaneous edema, or drainage from either wound both of which are approximated with subcuticular sutures reinforced with surgical adhesive. There is resolving ecchymosis in the skin of the infra- mammary fold on the left where the breast incision is located but no palpable evidence of a hematoma. Labs See "Lab" section Antibiotics: None Imaging CT Chest - bilateral pulmonary emboli with possible RLL segmental infarction; Intraparenchymal air is seen in the left breast and left axilla but no air/fluid levels are present All images were personally reviewed by me for this encounter. KAREEN Hansen MD, FACS General Surgery Service [phone]
[2023-06-14] MEDS: SODIUM CHLORIDE FLUSH 0.9% 10 ML SYRINGE IVP SCH ×2 (16:06→23:34)
[2023-06-14] MEDS: IBUPROFEN 600 MG TABLET PO SCH ×3 (16:33→23:34)
[2023-06-14] MEDS: ACETAMINOPHEN 325 MG TABLET PO SCH ×2 (17:47→23:34)
[2023-06-14] MEDS: APIXABAN 5 MG TABLET PO SCH (20:53)
[2023-06-15] MEDS: ACETAMINOPHEN 325 MG TABLET PO SCH ×2 (05:37→12:01)
[2023-06-15] MEDS: IBUPROFEN 600 MG TABLET PO SCH ×2 (05:37→12:01)
[2023-06-15] MEDS: APIXABAN 5 MG TABLET PO SCH (08:05)
[2023-06-15] MEDS: SODIUM CHLORIDE FLUSH 0.9% 10 ML SYRINGE IVP SCH (08:06)
[2023-06-15 08:34] LABS: BASOPHILS # (AUTO) 0.1 10^3/uL (0.0-0.1); BASOPHILS % (AUTO) 0.7 %; EOSINOPHILS # (AUTO) 0.2 10^3/uL (0.0-0.7); EOSINOPHILS % (AUTO) 2.2 %; HCT - HEMATOCRIT 41.4 % (37.0-47.0); HGB - HEMOGLOBIN 12.5 g/dL (12.0-16.0); LYMPHOCYTES # (AUTO) 2.6 10^3/uL (1.5-3.5); LYMPHOCYTES % (AUTO) 23.4 %; MEAN CORPUSCULAR HEMOGLOBIN 27.1 pg (27.0-31.0); MEAN CORPUSCULAR HGB CONC 30.2 g/dL (32.0-36.0); MEAN CORPUSCULAR VOLUME 89.8 fL (81.0-99.0); MONOCYTES # (AUTO) 0.8 10^3/uL (0.0-1.0); MONOCYTES % (AUTO) 7.4 %; NEUTROPHILS # (AUTO) 7.3 10^3/uL (1.5-6.6); NEUTROPHILS % (AUTO) 65.8 %; PLT - PLATELET COUNT 222 10^3/uL (130-450); RED BLOOD COUNT 4.61 10^6/uL (4.20-5.40); RED CELL DISTRIBUTION WIDTH 13.4 % (12.0-15.0); WHITE BLOOD COUNT 11.2 x10^3/uL (4.8-10.8)
--- NOTE | 2023-06-15 12:15 | Discharge Plan ---
Discharge Plan Problem Reviewed?: Yes Disposition: Home, Self Care Condition: Stable Prescriptions: Apixaban [Eliquis] 10 mg PO BID #70 tablet Diet: Regular Activity Restrictions: Activity as Tolerated Shower Restrictions: No Driving Restrictions: No Instruction Topics: Embolism Pulmonary Health Concerns: You were hospitalized to treat blood clots in your lungs, one of them has caused damage to the lung tissue itself. That is the reason that you have pain when you take a deep breath in the right flank area. We also considered that you might have an infection at the surgical sites, since you had a fever. Our surgeon evaluated the 2 suture sites and they appear to be clean and healing well, and no antibiotics are needed. You are being discharged home with a new medication called Eliquis, which is a blood thinner. You should take Eliquis 10 mg twice a day for a week and then decrease to 5 mg twice a day. Your primary care provider or oncologist will tell you how long you should be on this medication, usually it's a minimum of 3 months. I have prescribed the first month supply, refills need to come from your doctor. With your family history of several other people having blood clots, you were tested to see if you have a clotting abnormality to explain your blood clot. Those blood tests have been sent out and have not yet returned. You should see your primary care provider or oncologist to get those results, which will then dictate your further treatment (ie, the Eliquis may need to be taken lifelong). Also, you need to eat more protein-rich foods for better wound healing, and also since you have been losing weight. This will be especially important when you have chemotherapy coming up. Our Elastic Tape Inserter has provided you with a handout for food suggestions. Resume any vitamins or supplements you were taking. Plan of Treatment: As above. Care Goals: Improvement in symptoms and stabilization are the goals. Assessment: The patient understands and is agreeable with the plan. Additional Instructions or Follow Up instructions: If you have any new or worsening symptoms, call your PCP or your oncologist for advice, or come to the ER. No Smoking: If you smoke, Please STOP! Call for help. Follow-up with: Penelope Burkett ARNP [Primary Care Provider] - Ashley Newton MD [Provider Admit Priv/Credential] -
--- NOTE | 2023-06-15 14:56 | DISCHARGE SUMMARY ---
Discharge Summary Admit Date: 06/14/23 Discharge Date: 06/15/23 Discharging Provider: Dr Lorri Villareal Primary Care Provider: Penelope Burkett NP, Dr Ashley Deng (Oncol) Condition at Discharge: Stable Discharge Disposition: 01 Home, Self Care - HPI History of Present Illness: Patient is 47-year-old female with a neg past medical Hx, until recently a L breast mass was found on yearly exam, and after her mammo confirmed a mass, she had excisional biopsy several weeks ago and has Dx of invasive ductal carcinoma of the breast. She was seen by Dr Ramirez in our [facility] oncology clinic, who plans 4 courses of chemo in the future, but she first underwent surgical tumor excision a week ago. She has been managing pain at the 2 suture sites (below L breast and in L axilla) with ice paks QID. Today she presented to the ER describing that she awoke in the middle of the night with pleuritic R postero-lateral chest pain, shortness of breath, had a fever and her mother noticed drainage from the sutures site below her breast. She got a muscle relaxant which had no effect. Her ER W/U shows WBC 16.2, no fever here and stable VS with O2 sat 94-97 on r.a. D-dimer 965, so she had a CTA chest that shows multiple PE's bilaterally and a R postero-basal pulmonary infarction. In the ER she got Lovenox 100 mg sq x1, and Morphine for pain which gave her nausea. The L breast area was described as reddened and very tender. Her EKG, troponin and BNP were described as being unremarkable. The ED provider spoke to me about this pt. She will be brought in under Observation to manage her pleuritic pain, breast pain, to treat the PE with anticoagulants and treat possible breast cellulitis. - HOSPITAL COURSE Hospital Course: (1) Pulmonary embolism and infarction The pain in the right postero-lateral chest area, below the rib cage, was pleuritic pain not muscle spasm and was from her PE with lung infarction. She ne eded Morphine and Dilaudid for pain control both of which gave her nausea and she required Zofran. She got 1 therapeutic dose of Lovenox 100 mg subcu then was started on Eliquis 10 mg p.o. twice daily. Her Eliquis dose should be 10 mg po BID for a week, then 5 mg po BID. She reported that there is a family history of clots: Her father had a PE. Her brother had a DVT and PE. She was tested for Protein S, Protein C abnormalities, Factor V Leiden abn and Lupus anticoagulant. These are send out tests and results were not available at discharge. Duration of anticoagulant treatment will be up to the PCP or Oncologist. She underwent an Echo which showed normal chamber sizes, normal LVEF, no evidence of R heart strain, trace tricuspid regurg and normal IVC size and normal collapse with inspiration. By the following day she had no pain, even off pain meds, and she was discharged home. (2) Breast cancer She had excision of the entire breast tumor she said, and has 2 areas that were sutured, 1 below the left breast in the fold and one in her axilla. We continued ice paks and pain meds prn. F/U cancer management will be with Dr Deng. (3) Fever She reported having a fever at home when she awoke with the pain. A PE can cause fever but so can an infection, and she did have an elevated WBC of 16.2, but Lactic acid was normal at 1.1. Gen Surg was consulted to evaluate the surgical site and felt the sites looked fine, and did not recommend empiric antibiotics. There was no fever here on the following day and WBC was 11. - ALLERGIES Allergies/Adverse Reactions: Allergies Allergy/AdvReac Type Severity Reaction Status Date / Time gluten Allergy Unknown Verified 06/14/23 03:05 lactose Allergy Unknown Verified 06/14/23 03:05 latex Allergy Unknown Verified 06/14/23 03:05 - MEDICATIONS Home Medications: Ambulatory Orders Medication Instructions Recorded Confirmed Acetaminophen [Tylenol] 650 mg PO Q6HR tab 06/15/23 Apixaban [Eliquis] 10 mg PO BID #70 tablet 06/15/23 - PHYSICAL EXAM AT DISCHARGE General Appearance: positive: No acute distress, Alert, Other (Obese with BMI 37.) Eyes Bilateral: positive: Normal inspection, EOMI ENT: positive: ENT inspection nml, No signs of dehydration Neck: positive: Nml inspection, No JVD Respiratory: positive: No respiratory distress Cardiovascular: positive: Regular rate & rhythm Abdomen: positive: Non-tender, No distention Skin: positive: Warm, Dry Extremities: positive: Non-tender, No pedal edema Neurologic/Psychiatric: positive: Oriented x3, Motor nml - LABS Result Diagrams: 06/15/23 08:15 06/14/23 03:29 - FOLLOW UP Follow Up: See PCP in 1 to 2 weeks for hospital follow-up visit and/or Dr. Deng in [facility] oncology clinic. - TIME SPENT Time Spent in Discharge (Minutes): 30
[2023-06-15 16:14] VITALS: BP 134/91; O2SAT 99
== END 2023-06-15 16:15 | disposition home or self-care (01) ==
LOC: ED 02:58 → MS2 09:18
PROVIDERS: ADMIT Internal Medicine; ATTEND Internal Medicine
DX: T81.718A Complication of other artery following a procedure, not elsewhere classified, initial encounter (principal); I26.99 Other pulmonary embolism without acute cor pulmonale; G89.18 Other acute postprocedural pain; C50.912 Malignant neoplasm of unspecified site of left female breast; R06.02 Shortness of breath; R50.9 Fever, unspecified; Z87.891 Personal history of nicotine dependence; E66.9 Obesity, unspecified; Z68.37 Body mass index [BMI] 37.0-37.9, adult
CPT/HCPCS: 36415; 71275; 80053; 81241; 83605; 83690; 83880; 84484; 85025; 85300; 85303; 85306; 85379; 85598; 85613; 85732; 87040; 87070; 87205; 93005; 93306; 96365; 96372; 96375; 96376; 99284; 99285; A9270; G0378; J1170; J1650; Q9967

== ENCOUNTER 2024-04-21 14:23 | Outpatient (CLI) | payer MEDICAID ==
--- NOTE | 2024-04-24 10:37 | Mammography Report ---
BILATERAL DIGITAL DIAGNOSTIC MAMMOGRAM 3D/2D WITH SPOT COMPRESSION - LEFT BREAST POST LUMPECTOMY: 04/10 CLINICAL: Post left lumpectomy. Due for bilateral exam. Comparison is made to exams dated: 06/07/2023 mammogram, 06/07/2023 localization, 03/24/2023 mammogram, 03/12/2023 mammogram, and 02/11/2023 mammogram - [facility]. Both breasts are heterogeneously dense, which may obscure small masses (category c / 51-75% glandular tissue). There are benign post operative changes in the left breast and axilla. No significant masses, calcifications, or other findings are seen in either breast. IMPRESSION: INCOMPLETE: NEEDS ADDITIONAL IMAGING EVALUATION There is no abnormality seen in the left axilla to correspond with the palpable abnormality in the le ft axilla, however, ultrasound is recommended. This exam was interpreted at Station ID: [id number]. NOTE: For mammograms, a report in lay terms will be sent to the patient. Approximately 15% of breast malignancies will not be visualized mammographically. In the management of a palpable breast mass, a negative mammogram must not discourage biopsy of a clinically suspicious lesion. Electronically Signed By: Clarence morton/fede:04/21/2024 16:47:00 ACR BI-RADS Category 0: Incomplete 3340F PARENCHYMAL PATTERN: (D) - The breast(s) demonstrate(s) heterogeneously dense fibroglandular parenchy ma. BI-RADS CATEGORY: (0) - 0 Ultrasound [id number] Immediate follow-up LATERALITY: (L)
--- NOTE | 2024-04-24 10:37 | Ultrasound Report ---
ULTRASOUND OF LEFT AXILLA: 04/21/2024 CLINICAL: Palpable left axilla lump. Comparison is made to exams dated: 04/21/2024 mammogram, 06/07/2023 mammogram, 06/07/2023 localization - [facility], 04/01/2023 breast MRI - [facility], 03/24/2023 mammogram, and 03/12/20 mammogram - [facility]. Color flow ultrasound of the left axilla was performed. Oliver scale images of the real-time examinat ion were reviewed. No significant abnormalities were seen sonographically in the left axilla. IMPRESSION: NEGATIVE There is no sonographic evidence of malignancy. There is no abnormality seen in the left axilla to correspond with the palpable abnormality, which ap pears to be located in the upper arm and may be musculoskeletal in nature. Clinical correlation and f ollow up are recommended. Return to annual mammogram screening schedule is recommended. This exam was interpreted at Station ID: [id number]. Electronically Signed By: Clarence Hall M.D. ar/:04/21/2024 16:49:40 Ultrasound BI-RADS: 1 Negative BI-RADS CATEGORY: (1) - 1 Mammogram [id number] return to screening LATERALITY: (B)
== END 2024-04-21 14:24 | disposition home or self-care (01) ==
LOC: DI 14:23
PROVIDERS: ATTEND Surgery
DX: C50.912 Malignant neoplasm of unspecified site of left female breast (principal); R92.333 Mammographic heterogeneous density, bilateral breasts